=== PATIENT | male | born 1965 | race Caucasian/White ===

== ENCOUNTER 2018-03-17 05:29 | Inpatient (IN) ==
[2018-03-17] MEDS ORDERED: Metoprolol Tartrate 25 MG Tablet PO ONE (05:52)
[2018-03-17] MEDS ORDERED: Chlorhexidine Gluconate 2% 1 Pack (2 Cloths) TOPICAL ONE (05:52)
[2018-03-17] MEDS ORDERED: Chlorhexidine 4% Topical 120 APPLIC/120 ML Bottle TOPICAL SCH (06:00)
[2018-03-17] MEDS ORDERED: Vancomycin Inj 1,000 MG in Sodium Chlor 0.9% Inj 250 ML IV.SIG SCH (06:00)
[2018-03-17] MEDS ORDERED: Sodium Chlor 0.9% Inj 500 ML IV.SIG SCH (06:00)
[2018-03-17] MEDS ORDERED: ceFAZolin 2 GM Premix Inj 2 GM/50 ML PIGGYBACK IV.SIG SCH (06:00)
[2018-03-17] MEDS ORDERED: Bupivacaine/Epinephrine Inj 0.25% 50 ML Vial ONE (07:03)
[2018-03-17] MEDS ORDERED: fentaNYL Citrate Inj 250 MCG/5 ML Ampul ONE (07:14)
[2018-03-17] MEDS ORDERED: Bupivacaine/Dextrose 0.75% Inj 2 ML Ampul ONE (07:22)
[2018-03-17] MEDS ORDERED: TRANEXAMIC ACID IV.SIG SCH (07:30)
[2018-03-17] MEDS ORDERED: Sodium Chlor 0.9% Inj 40 ML, Bupivacaine Liposo PF 1.3% Inj 20 ML P-ARTICULR SCH ×2 (07:30)
[2018-03-17] MEDS ORDERED: SODIUM CHLOR 0.9% IV.SIG SCH (07:30)
[2018-03-17] MEDS ORDERED: Neostigmine Inj 5 MG/5 ML Syringe IV.PUSH ONE (07:31)
[2018-03-17] MEDS ORDERED: Glycopyrrolate Inj 1 MG/5 ML Syringe IV.PUSH ONE (07:31)
[2018-03-17] MEDS ORDERED: Lidocaine PF 1% Inj 5 ML Syringe OTHER ONE (07:31)
[2018-03-17] MEDS ORDERED: Succinylcholine Inj 100 MG/5 ML Syringe IV.PUSH ONE (07:31)
[2018-03-17] MEDS ORDERED: ALPRAZolam 0.5 MG Tablet PO PRN (10:00)
[2018-03-17] MEDS ORDERED: Bisacodyl 10 MG Supp RECTAL PRN (10:05)
[2018-03-17] MEDS ORDERED: Post-op Orders (for Pharmacy) OTHER STA (10:05)
--- NOTE | 2018-03-17 10:11 | P.OP ---
- Preoperative Diagnosis (1) Osteoarthritis of left knee - Postoperative Diagnosis (1) Osteoarthritis of left knee Date of procedure: 03/17/18 Procedure: Left total knee replacement arthroplasty, posterior stabilized Anesthesia: GETA Surgeon: Rick Can MD Oncology Pharmacist: SHIRLENE Meadows Operation and Findings: EBL: 100 cc INDICATION: This patient presents with long-standing arthritis of the knee. Attachment record documents conservative measures. The patient now presents for surgical treatment. NOTE: Judy Meadows PA-C was present for the entire surgical procedure as my administrative assistant office manager. In my medical opinion her skill and care was necessary for proper management of this patient. TOURNIQUET TIME: 70 minutes COMPANY: [employer] FEMUR: Size 9, posterior stabilized TIBIA: Size 9, fixed-bearing PATELLA: 38 mm POLYETHYLENE INSERT: 10 mm, posterior stabilized PROCEDURE: This patient was brought the operating room and anesthetized in the supine position. The patient was positioned supine on the table. The tourniquet was placed about the thigh, and the leg was scrubbed with alcohol followed by Hibiclens followed by ChloraPrep and draped sterilely. A timeout was done, and antibiotics were given. After exsanguination the tourniquet was inflated to 250 mmHg. An anterior incision was made and a median parapatellar arthrotomy was performed. The patella was released laterally and subluxed allowing freehand cut of the patella which was then sized. A metal cap was placed over the exposed patellar surface for protection. A charter pilot hole was placed in the distal femur allowing a 5 valgus cut removing 9 mm from the distal femur. Anterior posterior and chamfer cuts were made. The posterior stabilize osteotomy was made. The attention was directed to the tibia. Retractors were positioned. The external alignment guide was used allowing the lateral tibia to be used as referencing guide and cut utilizing an oscillating saw taking care to avoid any injury to the surrounding soft tissues. This was sized properly. Trial reduction showed that the insert fit nicely. The patient had range of motion extension 0 flexion 120 . A medial release was not necessary. The bony surfaces prepared. On the back table 2 packets of methylmethacrylate were mixed. The components were cemented. Excess cement was removed. The tourniquet let down and hemostasis was controlled. The final plastic insert was inserted. Range of motion was the same as previously noted. A drain was brought through a separate stab incision. The arthrotomy was repaired with interrupted #1 Vicryl suture, subcutaneous tissue 2-0 Vicryl suture and skin with metallic sukhjinder A sterile dressing was applied. Sponge counts, needle counts and instrument counts were all correct. The patient tolerated procedure well and was taken to recovery in satisfactory condition. FINDINGS: There was severe inflammatory changes. This appeared to be a combination of an inflammatory arthropathy and severe osteoarthritis. The final solution was excellent. There did not appear to be any complication.
--- NOTE | 2018-03-17 10:12 | P.DCO ---
- Physical Therapy Physical Therapy: Gait training (5 days/week for 2 weeks) Knee: Total knee, Protocol: Left, Full weight bearing Canvas Knee Splint: Other (At nighttime for 4 weeks) Left Lower Extremity Weight Bearing: Weight bearing as tolerated Left Lower Extremity Range of Motion: Active ROM - Nursing RN: 3 days/week x 2 weeks Dressing changes: Do not change dressing (Unless saturated. If saturated, daily dressing change with alcohol) - Certification Need for Home Health services: I have seen patient Morgan Del Castillo on 03/17/18. My clinical findings support the need for the requested home health care services because: Need for Home Health Services: Limited ability to care for self, High risk of falls Homebound Certification: I certify that my clinical findings support that this patient is homebound because: Homebound Certification: Unsteady gait/balance
[2018-03-17] MEDS ORDERED: *Meperidine Inj 25 MG/ML Vial PERIprocedural Use ONLY ONE (10:29)
[2018-03-17] MEDS ORDERED: *morphine SULFATE 4 MG/ML PERIprocedure ONLY ONE ×2 (10:47→11:21)
--- NOTE | 2018-03-17 10:50 | XR ---
EXAM DATE: 03/17/2018 10:44 AM EDT AGE/SEX: 52 years / Male INDICATIONS: Post op left knee. CLINICAL DATA: This is the patient's initial encounter. Patient reports that signs and symptoms have been present for 1 day and indicates a pain score of Nonresponsive. MEDICAL/SURGICAL HISTORY: None. None. COMPARISON: No prior exams available for comparison. FINDINGS: Views left knee are obtained. Left knee arthroplasty. No hardware loosening or fracture. Surgical tub ing seen anteriorly. Vertically oriented metallic sukhjinder are seen anteriorly CONCLUSION: Left knee arthroplasty. Electronically signed by: Xavier Garcia MD 03/17/2018 10:49 AM EDT
[2018-03-17] MEDS: ceFAZolin 1 GM Premix Inj 1 GM/50 ML IV.SIG SCH ×3 (12:46→20:45)
--- NOTE | 2018-03-17 15:00 | ECG ---
Date Performed: 03/17/2018 Time Performed: 06:29:40 PTAGE: 52 years EKG: SINUS BRADYCARDIA MARKED LEFT AXIS DEVIATION MODERATE VOLTAGE CRITERIA FOR LVH, CONSIDER NO RMAL VARIANT ABNORMAL ECG NO PREVIOUS TRACING DOCTOR: Demetris Moran Interpretating Date/Time 03/17/2018 14:51:15
[2018-03-17] MEDS: Morphine Inj 4 MG/ML Vial IV.PUSH PRN ×2 (15:13→19:29)
[2018-03-17] MEDS ORDERED: Temazepam 15 MG Capsule PO PRN (21:00)
[2018-03-17] MEDS: Melatonin 5 MG Tablet PO SCH (21:45)
[2018-03-17] MEDS: Senna/Docusate Sodium 8.6/50 MG Tablet PO SCH (21:46)
[2018-03-17] MEDS: Multivitamin/Minerals Therapeutic Tablet PO SCH (21:46)
[2018-03-18] MEDS: Morphine Inj 4 MG/ML Vial IV.PUSH PRN ×5 (00:03→19:52)
[2018-03-18] MEDS: ceFAZolin 1 GM Premix Inj 1 GM/50 ML IV.SIG SCH (01:52)
[2018-03-18] MEDS: Senna/Docusate Sodium 8.6/50 MG Tablet PO SCH ×2 (10:12→21:31)
[2018-03-18] MEDS: Allopurinol 300 MG Tablet PO SCH (10:13)
[2018-03-18] MEDS: Multivitamin/Minerals Therapeutic Tablet PO SCH ×2 (10:13→21:31)
[2018-03-18] MEDS: Pantoprazole Sodium 20 MG DR Tablet PO SCH (10:14)
--- NOTE | 2018-03-18 13:14 | P.PNOP ---
Subjective Interval history: Patient is doing well. Moderate left knee pain. No new radiating pain. Slight cough. Urinating well. No BM yet . Ready to d/c home. Physical Exam Vital signs: Vital Signs 03/17/18 14:00 03/17/18 14:45 03/17/18 15:56 Temperature 98.1 F 97.8 F Pulse Rate 60 72 71 Respiratory Rate 16 16 18 Blood Pressure 124/74 123/86 126/69 Pulse Oximetry 98 97 92 L 03/17/18 20:00 03/18/18 00:00 03/18/18 04:00 Temperature 98.2 F 97.4 F L 97.4 F L Pulse Rate 78 59 L 53 L Respiratory Rate 16 16 17 Blood Pressure 111/75 133/67 134/69 Pulse Oximetry 96 96 94 L 03/18/18 08:00 Temperature 97.2 F L Pulse Rate 62 Respiratory Rate 18 Blood Pressure 167/84 H Pulse Oximetry 96 Intake & Output 03/17/18 03/18/18 03/18/18 18:59 06:59 18:59 Intake Total 2549.52 / 2549.52 100 / 100 200 / 200 Output Total 190 / 190 2200 / 2200 Balance 2359.52 / 2359.52 -2100 / -2100 200 / 200 Weight 105.2 kg 105 kg Intake: IV 1669.52 / 1669.52 100 / 100 200 / 200 LR 1000 mL Inj 1,000 ML @ 80 209 / 209 200 / 200 mls/hr IV.CONT .[id number] [facility] Rx# :[id number] LR 1000 mL Inj 1,000 ML @ 30 1000 / 1000 mls/hr IV.SIG .Q24H [facility] Rx#: [id number] Cyklokapron Inj 1,052 MG In NS 110.52 / 110.52 Inj 100 ML @ 200 mls/hr IV.SIG ONCE [facility] Rx#:[id number] Vancomycin Inj 1,000 MG In NS 250 / 250 Inj 250 ML @ 250 mls/hr IV.SIG NAPPER FIXER [facility] Rx#:[id number] Ancef 1 GM Premix Inj 1 gm In 50 / 50 100 / 100 50 ml @ 100 mls/hr IV.SIG Q6H [facility] Rx#:[id number] Ancef 2 GM Premix Inj 2 gm In 50 / 50 50 ml @ 100 mls/hr IV.SIG NAPPER FIXER [facility] Rx#:[id number] Oral 780 / 780 Anesthesia Amount 100 / 100 Output: Urine 1800 / 1800 Estimated Blood Loss 100 / 100 Wound Drainage 400 / 400 # 1 Left Knee Hemovac 400 / 400 Other: # Voids 1 Date of Last Bowel Movement 03/16/18 03/17/18 # Bowel Movements 0 Narrative: Sitting up in chair NAD LLE Drain in place, Dressing c/d/i, mild swelling, warmth, no erythema +motoro AT, +sens, +nvi Neg homans - Constitutional no acute distress Results - Procedures Left total knee arthroplasty Assessment and Plan - Ortho Post Op Day # 1 - Assessment and Plan pod#1 s/p L TKA Doing well. Pain moderate but controlled. Ok to d/c home today after PT. D/C knee drain. Redress drain site only. Hold incision dressing changes unless saturated. Ok to remove externalACE wrap. ASA 81mg Ok to restart Diclofenac 4-5 days postop. PT - WBAT LLE. TKA protocol. F/U in 2 weeks as scheduled.
--- NOTE | 2018-03-18 13:14 | P.DS ---
Date of admission: 03/17/18 05:29 Primary care physician: Aneesh Burns Attending physician on discharge: Rick Can Anticipated date of discharge: 03/18/18 DS: Medications - Discharge Medications Prescriptions: aspirin 81 mg PO BID #60 tab hydrocodone-acetaminophen 1 tab PO Q4H PRN #42 tab PRN Reason: Acute Pain DS: Summary - Time Spent with Patient Total time spent providing and/or coordinating discharge services: - Quality: VTE Deep Vein Thrombosis/Pulmonary Embolism Present on Admission: No Exam Vital signs: Vital Signs 03/17/18 14:00 03/17/18 14:45 03/17/18 15:56 Temperature 98.1 F 97.8 F Pulse Rate 60 72 71 Respiratory Rate 16 16 18 Blood Pressure 124/74 123/86 126/69 Pulse Oximetry 98 97 92 L 03/17/18 20:00 03/18/18 00:00 03/18/18 04:00 Temperature 98.2 F 97.4 F L 97.4 F L Pulse Rate 78 59 L 53 L Respiratory Rate 16 16 17 Blood Pressure 111/75 133/67 134/69 Pulse Oximetry 96 96 94 L 03/18/18 08:00 Temperature 97.2 F L Pulse Rate 62 Respiratory Rate 18 Blood Pressure 167/84 H Pulse Oximetry 96 Intake & Output 03/17/18 03/18/18 03/18/18 18:59 06:59 18:59 Intake Total 2549.52 / 2549.52 100 / 100 200 / 200 Output Total 190 / 190 2200 / 2200 Balance 2359.52 / 2359.52 -2100 / -2100 200 / 200 Weight 105.2 kg 105 kg Intake: IV 1669.52 / 1669.52 100 / 100 200 / 200 LR 1000 mL Inj 1,000 ML @ 80 209 / 209 200 / 200 mls/hr IV.CONT .[id number] [facility] Rx# :[id number] LR 1000 mL Inj 1,000 ML @ 30 1000 / 1000 mls/hr IV.SIG .Q24H [facility] Rx#: [id number] Cyklokapron Inj 1,052 MG In NS 110.52 / 110.52 Inj 100 ML @ 200 mls/hr IV.SIG ONCE [facility] Rx#:[id number] Vancomycin Inj 1,000 MG In NS 250 / 250 Inj 250 ML @ 250 mls/hr IV.SIG HAND BOOKED FOLDER AND STITCHER [facility] Rx#:[id number] Ancef 1 GM Premix Inj 1 gm In 50 / 50 100 / 100 50 ml @ 100 mls/hr IV.SIG Q6H [facility] Rx#:[id number] Ancef 2 GM Premix Inj 2 gm In 50 / 50 50 ml @ 100 mls/hr IV.SIG HAND BOOKED FOLDER AND STITCHER [facility] Rx#:[id number] Oral 780 / 780 Anesthesia Amount 100 / 100 Output: Urine 1800 / 1800 Estimated Blood Loss 100 / 100 Wound Drainage 400 / 400 # 1 Left Knee Hemovac 400 / 400 Other: # Voids 1 Date of Last Bowel Movement 03/16/18 03/17/18 # Bowel Movements 0 Results Procedures completed during hospitalization: Left total knee arthroplasty - Impressions ITS Impressions Knee X-Ray 03/17/18 10:05 CONCLUSION: Left knee arthroplasty. Discharge Plan - Discharge Disposition Patient Disposition: /Home Health Service - Discharge Condition Condition: Good - Discharge Order Discharge Orders: Discharge Order (Routine); Ordered 03/18/18 Ordered By: Rick Can - Discharge Details Anticipated Discharge Date: 03/18/18 - Physicians Team Primary Care Provider: Aneesh Burns Attending Provider: Rick Can Other Providers: [facility],Agency - Rxs /Orders / Referrals /Forms Prescriptions: New aspirin 81 mg Tablet,Chewable 81 mg PO BID Qty: 60 RF: 0 hydrocodone-acetaminophen 7.5-325 mg Tablet 1 tab PO Q4H PRN (Reason: Acute Pain) Qty: 42 RF: 0 Continue allopurinol 300 mg Tablet 300 mg PO DAILY alprazolam [Xanax] 0.5 mg Tablet 0.5 mg PO BID PRN (Reason: Anxiety) diclofenac sodium 75 mg Tablet,Delayed Release (Dr/Ec) 75 mg PO BID flaxseed oil 1,000 mg Capsule 1,000 mg PO DAILY folic acid 1 mg Tablet 1 mg PO DAILY melatonin 3 mg Tablet 3 mg PO HS methotrexate sodium 2.5 mg Tablet 15 mg PO WEEKLY [id number]-ibt-pmtp-FA-vit K [Adults Multivitamin] 18 mg iron-400 mcg-25 mcg Tablet 1 tab PO DAILY omega 1-uwd-xic-fish oil [Fish Oil] 900 mg-360 mg- 455 mg-1,000 mg Capsule 2 cap PO BID omeprazole 20 mg Tablet,Delayed Release (Dr/Ec) 20 mg PO DAILY Discontinued aspirin [Adult Low Dose Aspirin] 81 mg Tablet,Delayed Release (Dr/Ec) 81 mg PO DAILY Ambulatory Orders / Order Sets / DME: Adjustable Commode 3-in-1 (1 each) (Routine) Location: Determined by Patient Ordered By: Rick Can Walker With Front Wheels (1 each) (Routine) Location: Determined by Patient Ordered By: Rick Can Referrals: Aneesh Burns D.O. [Primary Care Provider] - See Instructions - Discharge Instructions Patient Printed Instructions: Knee Replacement (DC) - Post Discharge Care Plan Care Plan Goals: Discharge Care Plan Goals for LEFT Total Knee Replacement You have undergone knee replacement surgery. Your doctor replaced your painful joint with an artificial joint to relieve pain and restore movement. Here are some goals to help you heal well. Directions to Meet your Goals: 1. Activity & Exercises: * Take pain medicine as directed by your doctor. * Sit in chairs with arms. The arms make it easier for you to stand up or sit down. * Dont sit for more than 30 to 45 minutes at one time. * Nap if you are tired, but dont stay in bed all day. * Sleep with a pillow under your ankle, not your knee. Be sure to change the position of your leg during the night. * Wear the support stockings you were given in the hospital as directed by your surgeon. 2. Prevent Falls/Injury: The morris to successful recovery is movement with walking and exercising your knee as directed by your doctor. * Arrange your household to keep the items you need handy. Keep everything else out of the way. * Remove items that may cause you to fall, such as throw rugs and electrical cords. * Use nonslip bath mats, grab bars, an elevated toilet seat, and a shower chair in your bathroom * Sit on a shower stool or chair when you shower to keep from falling. * Until your balance, flexibility, and strength improve, use a cane, crutches, a walker, handrails, or someone to help you. * Keep your hands free by using a backpack, jacinto pack, apron, or pockets to carry things * Walk up and down stairs with support. Try one step at a time. Use the railing if possible. * Dont drive until your doctor says its OK. * Dont drive while you are taking opioid pain medicine. 3. Precautions: * Prevent infection. Any infection will need to be treated immediately. Call your doctor right away if you think you might have an infection. * Tell your dentist that you have an artificial joint and take antibiotics as prescribed before any dental work. * Tell all your healthcare providers about your artificial joint before any medical procedure. * Maintain a healthy weight. Get help to lose any extra pounds. Added body weight puts stress on the knee. * Your medications may include blood-thinning medicine to prevent blood clots or antibiotics to prevent infection-prevent any falls or cuts 4. Incision Care: * Prevent infection by washing your hands often. If an infection occurs, it will need to be treated right away. * Call your doctor right away if you think you may have an infection. Symptoms include a fever or an incision that leaks white, green, or yellow fluid. * Don't soak your incision in water until your doctor says its OK. This means no hot tubs, bathtubs, or swimming pools. * Follow your doctor's instructions for changing the dressing. * Dont rub the incision, or apply creams or lotions to it. * If you notice any redness or drainage around the bandage site, contact your surgeon's office immediately. 5. Follow-Up: Do Not miss your follow-up appointment. Keep up with all your appointments and yearly check ups When to call your doctor: Call your doctor right away if you have: Fever of 100.4F (38C) or higher, or as directed by your doctor Shaking chills Stiffness, or inability to move the knee Increased swelling in your leg Increased redness, tenderness, or swelling in or around the knee incision Drainage from the knee incision Increased knee pain Call 911: Call 911 right away if you have: Chest pain Shortness of breath Any pain or tenderness in your calf
[2018-03-18] MEDS: Melatonin 5 MG Tablet PO SCH (21:31)
[2018-03-19 06:54] LABS: Hematocrit 34.5 % (39.0-51.0)
--- NOTE | 2018-03-19 08:39 | P.PNOP ---
Subjective Interval history: He continues to improve. Was still using morphine IV yesterday so discharge was held. Apparently drain put out 250cc so call was made to MD and that was also held. No other complaints today. Physical Exam Vital signs: Vital Signs 03/18/18 12:00 03/18/18 16:00 03/18/18 20:00 Temperature 98.7 F 98.5 F 98.5 F Pulse Rate 67 79 Respiratory Rate 18 18 18 Blood Pressure 132/76 145/77 H 127/70 Pulse Oximetry 94 L 97 92 L 03/19/18 00:00 03/19/18 04:00 Temperature 98.4 F 97.9 F Pulse Rate 73 71 Respiratory Rate 18 18 Blood Pressure 126/75 130/75 Pulse Oximetry 94 L 95 Intake & Output 03/18/18 03/19/18 03/19/18 18:59 06:59 18:59 Intake Total 200 / 200 Output Total 250 / 250 30 / 30 Balance -50 / -50 -30 / -30 Weight 105.6 kg Intake: IV 200 / 200 LR 1000 mL Inj 1,000 ML @ 80 200 / 200 mls/hr IV.CONT .[id number] [facility] Rx# :[id number] Output: Wound Drainage 250 / 250 30 / 30 # 1 Left Knee Hemovac 250 / 250 30 / 30 Other: # Voids 4 4 Date of Last Bowel Movement 03/16/18 Narrative: Sitting up in chair NAD LLE Drain removed, Dressing c/d/i, mild swelling, warmth, no erythema +motor AT, +sens, +nvi Neg homans - Constitutional no acute distress Results - Labs CBC & Chem 7: 03/19/18 05:38 Laboratory Results - last 24 hr 03/19/18 05:38 Hgb 12.0 L Hct 34.5 L - Procedures Left total knee arthroplasty Assessment and Plan - Ortho Post Op Day # 2 - Assessment and Plan pod#2 s/p L TKA Doing well. Pain moderate but controlled. He was still using IV morphine yesterday so discharge was held. Ok to d/c home today after PT. I ordered d/c of drain but nurse contact MD as output was 250-280 in 12 hours. Drain was held to later in the day. Hold incision dressing changes unless saturated. Ok to remove externalACE wrap. ASA 81mg. Ok to restart Diclofenac 4-5 days postop. PT - WBAT LLE. TKA protocol. PO pain meds. Script written prior to admission so he already has it at home. F/U in 2 weeks as scheduled.
[2018-03-19] MEDS: Pantoprazole Sodium 20 MG DR Tablet PO SCH (09:41)
[2018-03-19] MEDS: Multivitamin/Minerals Therapeutic Tablet PO SCH (09:41)
[2018-03-19] MEDS: Senna/Docusate Sodium 8.6/50 MG Tablet PO SCH (09:41)
[2018-03-19] MEDS: Allopurinol 300 MG Tablet PO SCH (09:41)
== END 2018-03-19 14:33 | disposition home health service (06) ==
LOC: HSDI 05:29 → N06 15:11
PROVIDERS: ADMIT Orthopaedic Surgery Orthopaedic Surgery of the Spine; ATTEND Orthopaedic Surgery Orthopaedic Surgery of the Spine